=== PATIENT | female | born 2000 | race Caucasian/White ===

== ENCOUNTER 2019-01-26 15:35 | Emergency (ER) | payer MEDICAID, OTHER ==
[~2019-01-26] VITALS: Ht 167.6 cm; Wt 72.6 kg
[2019-01-26 15:35] VITALS: BP 120/74
[~2019-01-26 15:35] MED LIST: ACET-2619
--- NOTE | 2019-01-26 15:35 | NUR ---
PT CANDIS ALS AND PLACED IN BED 3.
--- NOTE | 2019-01-26 15:56 | NUR ---
PT BIBA FROM [facility]BY CL[facility] FOR SEIZURE LIKE ACTIVITY. PT EYES ROLL BACK AND EYE LIDS FLUTTER, PT IS ALERT AND NON POST ICTAL AFTER "SEIZURE", NO RISK FOR ASPIRATION DURING ACTIVITY. PT HAS BEEN SEEN AT [facility], [facility], AND [facility] FOR SAME AND S/S. HAS NOT YET BEEN DIAGNOSED. STATES SHE IS CURRENTLY NOT TAKING ANY MEDICATIONS. [id number]. VSS. BED IS DOWN, LOCKED, BED RAIL X 1, ERMD TO SEE PT.
--- NOTE | 2019-01-26 16:20 | NUR ---
PT STATES SHE WANTS TO LEAVE, DR EL NOTIFIED AND AT BEDSIDE
[2019-01-26 16:37] VITALS: BP 107/64
--- NOTE | 2019-01-26 16:37 | NUR ---
Patient discharged with v/s stable. Written and verbal after care instructions given and explained. Patient verbalized understanding. Ambulatory with steady gait. All questions addressed prior to discharge. Advised to follow up with PCP.
== END 2019-01-26 16:37 | disposition home or self-care (01) ==
LOC: MED 15:35
DX: R56.9 Unspecified convulsions (principal); Z79.899 Other long term (current) drug therapy
CPT/HCPCS: 99283